=== PATIENT | male | born 1975 | race African-American/Black ===

== ENCOUNTER 2018-05-26 08:49 | Emergency (ER) | payer OTHER ==
[~2018-05-26] VITALS: Ht 180.3 cm; Wt 93.4 kg
[2018-05-26 09:08] LABS: ABSOLUTE NEUTROPHILS 3.6 thou/uL (1.4-8.2); BASOPHILS 0.6 % (0.0-2.0); EOSINOPHILS 1.6 % (0.0-3.0); HEMATOCRIT 41.9 % (42.0-52.0); HEMOGLOBIN 14.4 gm/dL (14.0-18.0); LYMPHOCYTES 40.6 % (24.0-44.0); MCH 31.4 pg (26.0-34.0); MCHC 34.3 g/dL (28.0-37.0); MCV 91.6 fL (80.0-100.0); MONOCYTES 4.9 % (1.0-8.0); PLATELET COUNT 323 thou/uL (150-400); POLYS 52.3 % (36.0-66.0); RBC 4.57 mil/uL (4.50-6.00); RDW 13.6 % (10.5-14.5); WBC 6.9 thou/uL (4.0-11.0)
[2018-05-26 09:16] LABS: CALCIUM 9.4 mg/dL (8.5-10.1); POTASSIUM 3.9 mmol/L (3.5-5.1)
[2018-05-26 09:22] LABS: ALBUMIN 3.8 g/dL (3.4-5.0); TOTAL BILIRUBIN 0.8 mg/dL (<0.1-1.0); TOTAL PROTEIN 7.7 g/dL (6.4-8.2)
[2018-05-26 10:09] LABS: URINE BILIRUBIN NEGATIVE (Negative); URINE BLOOD NEGATIVE (Negative); URINE CLARITY CLEAR; URINE COLOR YELLOW; URINE GLUCOSE-RANDOM* NEGATIVE (Negative); URINE KETONES NEGATIVE (Negative); URINE LEUKOCYTES-REFLEX NEGATIVE (Negative); URINE NITRITE-REFLEX NEGATIVE (Negative); URINE PROTEIN (DIPSTICK) NEGATIVE (Negative); URINE UROBILINOGEN 0.2 E.U./dl (0.2-1.0)
[2018-05-26] MEDS ORDERED: BENTYL 20 MG TA20 M1 PO (10:48)
[2018-05-26] MEDS ORDERED: NORCO 5-325 TA1 EACH PO (10:48)
[2018-05-26] MEDS ORDERED: ZOFRAN ODT4 MG PO (10:48)
[2018-05-26 11:19] VITALS: BP 127/66
== END 2018-05-26 11:20 | disposition home or self-care (01) ==
LOC: ER 08:49
PROVIDERS: Emergency Medicine
DX: K92.1 Melena (principal); R11.2 Nausea with vomiting, unspecified; F17.210 Nicotine dependence, cigarettes, uncomplicated; Z90.49 Acquired absence of other specified parts of digestive tract

== ENCOUNTER 2020-05-29 09:04 | Emergency (ER) | payer OTHER ==
[~2020-05-29] VITALS: Ht 180.3 cm; Wt 95.7 kg
[~2020-05-29 09:04] MED LIST: BENTYL 20 MG TA20 M1 PO; NORCO 5-325 TA1 EACH PO; ZOFRAN ODT4 MG PO
[2020-05-29 10:51] LABS: HEMATOCRIT 43.3 % (42.0-52.0); HEMOGLOBIN 14.3 gm/dL (14.0-18.0); MCH 31.1 pg (26.0-34.0); MCV 94.2 fL (80.0-100.0); RBC 4.6 mil/uL (4.50-6.00); RDW 14.8 % (10.5-14.5); WBC 5.8 thou/uL (4.0-11.0)
[2020-05-29 11:01] LABS: ANION GAP 10 mmol/L (7-16); BUN 17 mg/dL (7-18); CALCIUM 9.3 mg/dL (8.5-10.1); CHLORIDE 104 mmol/L (98-107); CO2 24 mmol/L (21-32); CREATININE 1.2 mg/dL (0.7-1.3); GLUCOSE 89 mg/dL (74-106); POTASSIUM 3.9 mmol/L (3.5-5.1); SODIUM 138 mmol/L (136-145)
[2020-05-29 11:09] LABS: TROPONIN-I <0.06 ng/mL (<0.06)
[2020-05-29 12:29] VITALS: BP 110/58
--- NOTE | 2020-05-29 15:49 | EKG ---
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: [facility] : 1975 Requested By: Jose Luis Parks Order Number: [id number] : Tanner Mcgovern Measurements Intervals [place] Rate: 62 P: 43 [place]: 176 QRS: 23 QRSD: 99 T: 13 QT: 412 QTc: 419 Interpretive Statements Sinus rhythm Abnormal R-wave progression, early transition ST elevation, consider early anterior injury No previous ECG available for comparison Electronically Signed On 05-29-2020 15:48:57 CDT by Tanner Mcgovern [email or web address] <ELECTRONICALLY SIGNED> By: Tanner Mcgovern MD, FACC 05/29/20 1548 0944 0944 Tanner Mcgovern MD, FAC /EPI
--- NOTE | 2020-05-30 07:52 | EKG ---
[facility] [place] [address] ELECTROCARDIOGRAM REPORT Name: KAROL SHEETS Room #: DEP [facility].#: [id number] Admission: 05/29/20 Attend Phys: Discharge: 05/29/20 Date of : 73 Report #: [id number] THIS REPORT FOR: cc: FAM - Family physician unknown FAM - Family physician unknown Tanner Mcgovern MD [facility] THIS REPORT FOR: //name// [facility] ED Test Date: 2020-05-29 Test Time: 09:48:55 Pat Name: KAROL SHEETS Department: Room: Gender: Transitional Care Nurse: [facility] : 1975 Requested By: Jose Luis Parks Order Number: [id number] MD: Tanner Mcgovern Measurements Intervals [place] Rate: 59 P: 45 [place]: 194 QRS: 24 QRSD: 100 T: 15 QT: 416 QTc: 413 Interpretive Statements Sinus rhythm RSR' in V1 or V2, right VCD or RVH Inferior infarct, acute (LCx) ST elevation V2-3, consider early anterior injury vs. prominent early r repolarizarion Compared to ECG 05/29/2020 09:44:45 No significant change Electronically Signed On 05-30-2020 7:52:04 CDT by Tanner Mcgovern [email or web address] <ELECTRONICALLY SIGNED> By: Tanner Mcgovern MD, FACC 05/30/20 0752 7 7 Tanner Mcgovern MD, FAC /EPI
== END 2020-05-29 12:29 | disposition home or self-care (01) ==
LOC: ER 09:04
PROVIDERS: Emergency Medicine
DX: R07.89 Other chest pain (principal); R05 Cough; R06.02 Shortness of breath; J45.909 Unspecified asthma, uncomplicated; E11.9 Type 2 diabetes mellitus without complications; F17.210 Nicotine dependence, cigarettes, uncomplicated; Z90.49 Acquired absence of other specified parts of digestive tract; Z20.828 Contact with and (suspected) exposure to other viral communicable diseases

== ENCOUNTER 2020-12-05 11:51 | Emergency (ER) | payer OTHER ==
[~2020-12-05] VITALS: Ht 180.3 cm; Wt 101.6 kg
[2020-12-05 12:16] LABS: ABSOLUTE NEUTROPHILS 2.8 thou/uL (1.4-8.2); BASOPHILS 0.5 % (0.0-2.0); EOSINOPHILS 2.3 % (0.0-3.0); HEMATOCRIT 38.7 % (42.0-52.0); HEMOGLOBIN 12.9 gm/dL (14.0-18.0); LYMPHOCYTES 35.2 % (24.0-44.0); MCH 31.5 pg (26.0-34.0); MCHC 33.3 g/dL (28.0-37.0); MCV 94.6 fL (80.0-100.0); MONOCYTES 8.6 % (1.0-8.0); PLATELET COUNT 329 thou/uL (150-400); POLYS 53.4 % (36.0-66.0); RBC 4.09 mil/uL (4.50-6.00); WBC 5.3 thou/uL (4.0-11.0)
[2020-12-05 12:25] LABS: ANION GAP 10 mmol/L (7-16); BUN 12 mg/dL (7-18); CALCIUM 8.8 mg/dL (8.5-10.1); CHLORIDE 108 mmol/L (98-107); CO2 26 mmol/L (21-32); CREATININE 0.9 mg/dL (0.7-1.3); GLUCOSE 95 mg/dL (74-106); SODIUM 144 mmol/L (136-145)
[2020-12-05 12:35] LABS: ALBUMIN 3.7 g/dL (3.4-5.0); LIPASE 81 U/L (73-393); SGOT 15 U/L (15-37); SGPT 30 U/L (16-63); TOTAL BILIRUBIN 0.8 mg/dL (0.2-1.0); TOTAL PROTEIN 7.4 g/dL (6.4-8.2); TROPONIN-I <0.06 ng/mL (<0.06)
--- NOTE | 2020-12-05 13:04 | EKG ---
[place] [address] [place] [address] ELECTROCARDIOGRAM REPORT Name: KAROL SHEETS [facility] [id number] Admission: 12/05/20 Attend Phys: Discharge: Date of : 73 Report #: [id number] [facility] ED Test Date: 2020-12-05 Test Time: 11:55:06 Pat Name: KAROL SHEETS Department: Room: Gender: M Nutritionists: MERRICK : 1975 Requested By: Star Lucero Order Number: [id number] MD: Tanner Mcgovern Measurements Intervals [place] Rate: 54 P: 21 [place]: 169 QRS: 8 QRSD: 93 T: 4 QT: 422 QTc: 400 Interpretive Statements Sinus rhythm Abnormal R-wave progression, early transition J Point elevation precordial leads Compared to ECG 05/29/2020 09:48:55 Right ventricular hypertrophy no longer present Myocardial infarct finding no longer present Electronically Signed On 12-05-2020 13:04:15 CDT by Tanner Mcgovern [email or web address] <ELECTRONICALLY SIGNED> By: Tanner Mcgovern MD, [facility] 12/05/20 1304 1155 1155 Tanner Mcgovern MD, FACC /EPI
--- NOTE | 2020-12-05 13:04 | EKG ---
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: MERRICK : 1975 Requested By: Star Lucero Order Number: [id number] MD: Tanner Mcgovern Measurements Intervals [place] Rate: 97 P: [place]: QRS: 24 QRSD: 118 T: -2 QT: 378 QTc: 480 Interpretive Statements Artifact, NSR Nonspecific intraventricular conduction delay Borderline low voltage, extremity leads Artifact in lead(s) III,V1,V2,V4,V5,V6 Compared to ECG 12/05/2020 11:55:06 ST (T wave) deviation still present Electronically Signed On 12-05-2020 13:04:49 CDT by Tanner Mcgovern [email or web address] <ELECTRONICALLY SIGNED> By: Tanner Mcgovern MD, [facility] 12/05/20 1304 1211 1211 Tanner Mcgovern MD, [facility] /EPI
[2020-12-05 13:25] VITALS: BP 108/70
--- NOTE | 2020-12-06 07:02 | EKG ---
[facility] [place] [address] ELECTROCARDIOGRAM REPORT Name: KAROL SHEETS [id number] Admission: 12/05/20 Attend Phys: Discharge: 12/05/20 Date of : 73 Report #: [id number] 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 : 1975 Requested By: Star Lucero Order Number: [id number] MD: Tanner Mcgovern Measurements Intervals [place] Rate: 48 P: 36 [place]: 167 QRS: 3 QRSD: 96 T: 1 QT: 437 QTc: 391 Interpretive Statements Sinus bradycardia Abnormal R-wave progression, early transition Borderline ST elevation, lateral leads Compared to ECG 12/05/2020 12:11:47 ST (T wave) deviation now present Intraventricular conduction delay no longer present Electronically Signed On 12-06-2020 7:02:19 CDT by Tanner Mcgovern [email or web address] <ELECTRONICALLY SIGNED> By: Tanner Mcgovern MD, [facility] 12/06/20 0702 1231 1231 Tanner Mcgovern MD, [facility] /EPI
== END 2020-12-05 13:26 | disposition home or self-care (01) ==
LOC: ER 11:51
PROVIDERS: Emergency Medicine
DX: R07.89 Other chest pain (principal); J45.909 Unspecified asthma, uncomplicated; E11.9 Type 2 diabetes mellitus without complications; R06.02 Shortness of breath; F17.210 Nicotine dependence, cigarettes, uncomplicated; Z90.49 Acquired absence of other specified parts of digestive tract

== ENCOUNTER 2021-03-13 06:45 | Emergency (ER) | payer OTHER ==
[~2021-03-13] VITALS: Ht 180.3 cm; Wt 104.3 kg
--- NOTE | 2021-03-13 07:32 | EKG ---
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 : 1975 Requested By: Mor Jones Order Number: [id number] MD: Tanner Mcgovern Measurements Intervals [place] Rate: 52 P: 41 [place]: 171 QRS: 2 QRSD: 95 T: -9 QT: 420 QTc: 391 Interpretive Statements Sinus rhythm Abnormal R-wave progression, early transition Borderline T abnormalities, inferior leads Baseline wander in lead(s) V1 Compared to ECG 12/05/2020 12:31:53 T-wave abnormality now present Sinus bradycardia no longer present ST (T wave) deviation still present Electronically Signed On 03-13-2021 7:31:53 CDT by Tanner Mcgovern [email or web address] <ELECTRONICALLY SIGNED> By: Tanner Mcgovern MD, [facility] 03/13/2131 3 3 Tanner Mcgovern MD, [facility] /[facility]
[2021-03-13] MEDS ORDERED: DECADRON4 MG PO (08:05)
[2021-03-13] MEDS ORDERED: PROAIR HFA8.5 GM INH (08:10)
[2021-03-13 08:16] VITALS: BP 138/81
== END 2021-03-13 08:33 | disposition home or self-care (01) ==
LOC: ER 06:45
DX: U07.1 COVID-19 (principal); J45.909 Unspecified asthma, uncomplicated; E11.9 Type 2 diabetes mellitus without complications; F17.210 Nicotine dependence, cigarettes, uncomplicated; Z90.49 Acquired absence of other specified parts of digestive tract

== ENCOUNTER 2021-05-19 06:05 | Emergency (ER) | payer OTHER ==
[~2021-05-19] VITALS: Ht 182.9 cm; Wt 108.0 kg
[~2021-05-19 06:05] MED LIST changes: +DECADRON4 MG PO; +PROAIR HFA8.5 GM INH
[2021-05-19 06:43] LABS: ABSOLUTE NEUTROPHILS 2.7 thou/uL (1.4-8.2); BASOPHILS 0.4 % (0.0-2.0); EOSINOPHILS 4.2 % (0.0-3.0); HEMATOCRIT 38.2 % (42.0-52.0); HEMOGLOBIN 12.6 gm/dL (14.0-18.0); LYMPHOCYTES 35.1 % (24.0-44.0); MCH 31.4 pg (26.0-34.0); MCHC 33.1 g/dL (28.0-37.0); MCV 94.8 fL (80.0-100.0); MONOCYTES 8.9 % (1.0-8.0); PLATELET COUNT 318 thou/uL (150-400); POLYS 51.4 % (36.0-66.0); RBC 4.03 mil/uL (4.50-6.00); WBC 5.3 thou/uL (4.0-11.0)
--- NOTE | 2021-05-19 07:21 | EKG ---
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: BRANDON : 1975 Requested By: Richard Francois Order Number: [id number] MD: Tanner Mcgovern Measurements Intervals [place] Rate: 54 P: 42 NM: 209 QRS: 7 QRSD: 110 T: -2 QT: 412 QTc: 391 Interpretive Statements Sinus rhythm Borderline prolonged NM interval RSR' in V1 or V2, right VCD or RVH ST elevation, consider anterolateral injury Compared to ECG 03/13/2021 07:24:20 Right ventricular hypertrophy now present RSR' in V1 or V2 now present ST (T wave) deviation now present Myocardial infarct finding now present T-wave abnormality no longer present Electronically Signed On 05-19-2021 7:20:53 CDT by Tanner Mcgovern [email or web address] <ELECTRONICALLY SIGNED> By: Tanner Mcgovern MD, FACC 05/19/21719 8 8 Tanner Mcgovern MD, FAC /EPI
--- NOTE | 2021-05-19 07:21 | EKG ---
[place] [address] [address] [facility] [place] [address] ELECTROCARDIOGRAM REPORT Name: KAROL SHEETS Room #: REG ZOE Nguyen#: [id number] Admission: 05/19/21 Attend Phys: Discharge: Date of : 73 Report #: [id number] [facility] ED Test Date: 2021-05-19 Test Time: 06:56:31 Pat Name: KAROL SHEETS Department: Room: Gender: M Geriatrician: BRANDON : 1975 Requested By: Richard Francois Order Number: [id number] MD: Tanner Mcgovern Measurements Intervals [place] Rate: 49 P: 35 [place]: 199 QRS: 1 QRSD: 100 T: -3 QT: 448 QTc: 405 Interpretive Statements Sinus bradycardia RSR' in V1 or V2, right VCD or RVH Borderline T abnormalities, inferior leads Minimal ST elevation, anterior leads Compared to ECG 05/19/2021 06:19:16 T-wave abnormality now present Sinus rhythm no longer present Myocardial infarct finding no longer present ST (T wave) deviation still present Electronically Signed On 05-19-2021 7:21:00 CDT by Tanner Mcgovern [email or web address] <ELECTRONICALLY SIGNED> By: Tanner Mcgovern MD, FACC 05/19/21 0721 0656 Tanner Mcgovern MD, [facility] /EPI
[2021-05-19 07:24] LABS: CALCIUM 8.7 mg/dL (8.5-10.1); CREATININE 0.9 mg/dL (0.7-1.3); POTASSIUM 3.8 mmol/L (3.5-5.1)
[2021-05-19 07:31] LABS: ALBUMIN 3.5 g/dL (3.4-5.0); TOTAL BILIRUBIN 0.4 mg/dL (0.2-1.0); TOTAL PROTEIN 6.6 g/dL (6.4-8.2)
[2021-05-19 08:58] VITALS: BP 104/64
[2021-05-19] MEDS ORDERED: PREDNISONE 20 M20 MG PO (09:22)
== END 2021-05-19 09:23 | disposition home or self-care (01) ==
LOC: ER 06:05
PROVIDERS: Emergency Medicine
DX: J45.901 Unspecified asthma with (acute) exacerbation (principal); E11.9 Type 2 diabetes mellitus without complications; F17.210 Nicotine dependence, cigarettes, uncomplicated; F12.90 Cannabis use, unspecified, uncomplicated; Z90.49 Acquired absence of other specified parts of digestive tract; Z79.51 Long term (current) use of inhaled steroids

== ENCOUNTER 2021-07-02 14:58 | Emergency (ER) | payer OTHER ==
[~2021-07-02] VITALS: Ht 180.3 cm; Wt 104.3 kg
[~2021-07-02 14:58] MED LIST changes: +PREDNISONE 20 M20 MG PO
--- NOTE | 2021-07-02 15:24 | EKG ---
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: JAY : 1975 Requested By: Charly Leger Order Number: [id number] MD: Alfred Ramirez Measurements Intervals [place] Rate: 71 P: 61 [place]: 169 QRS: 29 QRSD: 97 T: 32 QT: 393 QTc: 428 Interpretive Statements Sinus rhythm with occasional paced beats Abnormal R-wave progression, early transition Nonspecific ST segment abnormalities Compared to ECG 05/19/2021 06:56:31 Sinus bradycardia no longer present Electronically Signed On 07-02-2021 15:24:04 HANDYMAN by Alfred Ramirez [email or web address] <ELECTRONICALLY SIGNED> By: Alfred Ramirez MD 07/02/21 1524 1503 1503 Alfred Ramirez MD /EPI
[2021-07-02 15:33] LABS: ABSOLUTE NEUTROPHILS 2.5 thou/uL (1.4-8.2); BASOPHILS 0.4 % (0.0-2.0); EOSINOPHILS 2.3 % (0.0-3.0); HEMATOCRIT 38.6 % (42.0-52.0); LYMPHOCYTES 37.5 % (24.0-44.0); MCH 31.7 pg (26.0-34.0); MCHC 33.6 g/dL (28.0-37.0); MCV 94.4 fL (80.0-100.0); PLATELET COUNT 307 thou/uL (150-400); POLYS 52.8 % (36.0-66.0); RBC 4.09 mil/uL (4.50-6.00); RDW 13.3 % (10.5-14.5); WBC 4.8 thou/uL (4.0-11.0)
[2021-07-02 15:51] LABS: CALCIUM 8.6 mg/dL (8.5-10.1); POTASSIUM 3.6 mmol/L (3.5-5.1)
[2021-07-02 16:01] LABS: TOTAL BILIRUBIN 0.7 mg/dL (0.2-1.0); TOTAL PROTEIN 7.6 g/dL (6.4-8.2)
[2021-07-02] MEDS ORDERED: NEXIUM40 MG PO (17:34)
[2021-07-02 17:50] VITALS: BP 118/69
== END 2021-07-02 17:51 | disposition home or self-care (01) ==
LOC: ER 14:58
PROVIDERS: Emergency Medicine
DX: R07.89 Other chest pain (principal); J45.909 Unspecified asthma, uncomplicated; F17.210 Nicotine dependence, cigarettes, uncomplicated; Z90.49 Acquired absence of other specified parts of digestive tract

== ENCOUNTER 2021-07-17 11:53 | Emergency (ER) | payer OTHER ==
[~2021-07-17] VITALS: Ht 180.3 cm; Wt 106.6 kg
[2021-07-17 11:53] VITALS: BP 126/74
[~2021-07-17 11:53] MED LIST changes: +NEXIUM40 MG PO
== END 2021-07-17 12:26 | disposition left against medical advice (07) ==
LOC: ER 11:53
DX: H57.13 Ocular pain, bilateral (principal); Z77.098 Contact with and (suspected) exposure to other hazardous, chiefly nonmedicinal, chemicals; J45.909 Unspecified asthma, uncomplicated; F17.210 Nicotine dependence, cigarettes, uncomplicated; Z90.49 Acquired absence of other specified parts of digestive tract; Z86.16 Personal history of COVID-19; Z79.51 Long term (current) use of inhaled steroids; Z79.899 Other long term (current) drug therapy